=== PATIENT | male | born 1965 | race Two or more races ===

== ENCOUNTER 2025-05-14 13:32 | Inpatient (IN) | payer MEDICAID, OTHER ==
[~2025-05-14] VITALS: Ht 162.6 cm; Wt 63.0 kg
--- NOTE | 2025-05-14 15:41 | ED.PDOC ---
Musculoskeletal HPI Comments 59 y.o male with PMHx of DM and HTN, presents to the ED for a chief complaint of left lower foot pain that has been ongoing for a couple weeks. Patient reports he was in a rehabilitation center in [place] and was recently dropped off around this area 5 days ago, states he has been homeless for 5 years s/p getting evicted from his home and since has not taken any of his medications. Patient described foot pain as a cramping, burning sensation that worsens with temperature and also developed dizziness and increased thirst for the past couple of days. Patient has not been able to check his BG since he has been homeless and is concerned of his health due to lack of resources. Patient has ingrown toenails with long nails noted in which patient states he has not been able to clip due to his chronic lower back pain. Patient believes foot pain is coming from the ingrown nails. He denies nay falls, trauma, numbness sensation. Chief Complaint: Lower Extremity Time Seen by MD: 15:19 Reviewed Notes: Nurses Notes, Medications, Allergies Information Source: Patient Mode of Arrival: Ambulatory Location: Left Extremity Location: Foot Timing: Weeks Severity: Moderate Able to Move Extremity: Yes Bear Weight: Limited Pain: Moderate Mechanism: Spontaneous Circumstances: Spontaneous Onset of Symptoms: Spontaneous Symptoms: Swelling, Pain DVT Risk Factors: NONE Associated signs and symptoms: Swelling Past Medical History PAST MEDICAL HISTORY: DM, HTN Surgical History: Denies all surgeries Family History Family History: Reviewed,noncontributory to illness Social History Smoker: Non-Smoker Alcohol: Denies ETOH Use Drugs: Denies Drug Use Lives In: Homeless Constitutional: denies: chills, diaphoresis, fatigue, fever, malaise, sweats, weakness, others EENTM: denies: blurred vision, double vision, ear bleeding, ear discharge, ear drainage, ear pain, ear ringing, eye pain, eye redness, hearing loss, mouth pain, mouth swelling, nasal discharge, nose bleeding, nose congestion, nose pain, photophobia, tearing, throat pain, throat swelling, voice changes, others Respiratory: denies: cough, hemoptysis, orthopnea, SOB at rest, shortness of breath, SOB with excertion, stridor, wheezing, others Cardiovascular: denies: chest pain, dizzy spells, diaphoresis, Dyspnea on exertion, edema, irregular heart beat, left arm pain, lightheadedness, palpitations, PND, syncope, others Gastrointestinal: denies: abdomen distended, abdominal pain, blood streaked bowels, constipated, diarrhea, dysphagia, difficulty swallowing, hematemesis, melena, nausea, poor appetite, poor fluid intake, rectal bleeding, rectal pain, vomiting, others Genitourinary: denies: burning, dysuria, flank pain, frequency, hematuria, incontinence, penile discharge, penile sore, pain, testicle pain, testicle swelling, urgency, others Neurological: reports: dizziness; denies: fainting, headache, left sided numbness, left sided weakness, numbness, paresthesia, pre-existing deficit, right sided numbness, right sided weakness, seizure, speech problems, tingling, tremors, weakness, others Musculoskeletal: reports: others (left foot pain ); denies: back pain, gout, joint pain, joint swelling, muscle pain, muscle stiffness, neck pain Integumetry: denies: bruises, change in color, change in hair/nails, dryness, laceration, lesions, lumps, rash, wounds, others Allergic/Immunocompromised: denies: Difficulty Healing, Frequent Infections, Hives, Itching, others Hematologic/Lymphatic: denies: anemia, blood clots, easy bleeding, easy bruising, swollen glands, others Endocrine: reports: excessive thirst; denies: excessive hunger, excessive sweating, excessive urination, flushing, intolerance to cold, intolerance to heat, unexplained weight gain, unexplained weight loss, others Psychiatric: denies: anxiety, bipolar disorder, depression, hopeless, panic disorder, schizophrenia, sleepless, suicidal, others Physical Exam General Appearance: No Apparent Distress, Normal HEENT: Normal ENT Inspection, Pharynx Normal, TMs Normal Neck: Full Range of Motion, Non-Tender, Normal, Normal Inspection Respiratory: Chest Non-Tender, Lungs Clear, No Accessory Muscle Use, No Respiratory Distress, Normal Breath Sounds Cardiovascular: No Edema, No JVD, No Murmur, No Gallop, Normal Peripheral Pulses, Regular Rate/Rhythm Breast Exam: Deferred Gastrointestinal: No Organomegaly, Non Tender, No Pulsatile Mass, Normal Bowel Sounds, Soft Genitalia: Deferred Pelvic: Deferred Rectal: Deferred Extremities: No calf tenderness, Normal capillary refill, Normal inspection, Normal range of motion, Non-tender, No pedal edema Musculoskeletal : Location: Left Extremity Location: Foot Apperance: Tenderness: Moderate Neurologic: Alert, tonnage compilation clerk II-XII nml as Tested, No Motor Deficits, Normal Affect, Normal Mood, No Sensory Deficits Cerebellar Function: Normal Reflexes: Normal Skin: Dry, Normal Color, Warm, Other (left foot ingrown nails noted. ) Lymphatic: No Adenopathy Was a procedure done? Was a procedure done?: No Differential Diagnosis EXT Differential Diagnosis: Cellulitis, CHF, Deep Vein Thrombosis, Sprain, Gout, DJD, Strain X-Ray, Labs, Meds, VS Vital Signs Date Time Temp Pulse Resp B/P (MAP) Pulse Ox O2 Delivery O2 Flow Rate FiO2 05/14/25 13:38 97.1 67 18 144/82 97 97.1 Lab Test 05/14/25 15:55 Range/Units White Blood Count 9.0 4.4-10.8 10^3/uL Red Blood Count 4.72 4.5-5.90 10^6/uL Hemoglobin 14.1 13.5-17.5 g/dL Hematocrit 40.7 L 41.0-53.0 % Mean Corpuscular Volume 86.2 80.0-100.0 fL Mean Corpuscular Hemoglobin 29.8 28.0-32.0 pg Mean Corpuscular Hemoglobin Concent 34.5 32.0-36.0 g/dL Red Cell Distribution Width 13.0 11.8-14.3 % Platelet Count 317 140-450 10^3/uL Mean Platelet Volume 7.3 6.9-10.8 fL Neutrophils (%) (Auto) 57.9 37.0-80.0 % Lymphocytes (%) (Auto) 30.2 10.0-50.0 % Monocytes (%) (Auto) 8.2 0.0-12.0 % Eosinophils (%) (Auto) 3.1 0.0-7.0 % Basophils (%) (Auto) 0.6 0.0-2.0 % Neutrophils # (Auto) 5.2 1.6-8.6 10 ^3/uL Lymphocytes # (Auto) 2.7 0.4-5.4 10 ^3/uL Monocytes # (Auto) 0.7 0-1.3 10 ^3/uL Eosinophils # (Auto) 0.3 0-0.8 10 ^3/uL Basophils # (Auto) 0 0-0.2 10 ^3/uL Nucleated Red Blood Cells 0.1 % Sodium Level 135 L 136-145 mmol/L Potassium Level 5.0 3.5-5.1 mmol/L Chloride Level 101 98-107 mmol/L Carbon Dioxide Level 26 20-31 mmol/L Anion Gap 8 5-15 Blood Urea Nitrogen 12 9-23 mg/dL Creatinine 1.03 0.700-1.30 mg/dL Glomerular Filtration Rate Calc 83 >90 mL/min BUN/Creatinine Ratio 11.7 10.0-20.0 Serum Glucose 329 H 74-106 mg/dL Calcium Level 9.2 8.7-10.4 mg/dL Total Bilirubin 0.3 0.2-1.0 mg/dL Aspartate Amino Transferase (AST) 13 13-40 U/L Alanine Aminotransferase (ALT) 18 7-40 U/L Alkaline Phosphatase 115 46-116 U/L Total Protein 7.2 5.7-8.2 g/dL Albumin 4.0 3.2-4.8 g/dL X-Ray, Labs, Meds, VS Comment Patient will be admitted for hyperglycemia I then recommend A1c testing Recommend social service consult as patient is homeless Patient will require diabetic management and teaching. Vital signs reviewed by this provider, Previous charts/history reviewed by this provider Patient clinically stable Time of 1ST Reevaluation: 15:41 Reevaluation 1ST: Unchanged Patient Education/Counseling: Diagnosis, Treatment, Prognosis Family Education/Counseling: No Family Present Departure 1 Departure Time of Disposition: 18:56 Impression: Primary Impression: Hyperglycemia Additional Impression: Right leg pain Disposition: ADMITTED INPATIENT Condition: Stable Critical Care Note Critical Care Time?: No Stability Stability form required: No I personally scribed for NORMA MANRIQUE ([email or web address]) on 05/14/25 at 15:41. Electronically submitted by Rashida Penaloza ([facility]). NORMA MANRIQUE May 14, 2025 15:41
[2025-05-14 16:09] LABS: Hematocrit 40.7 % (41.0-53.0); Hemoglobin 14.1 g/dL (13.5-17.5); Mean Corpuscular Hemoglobin 29.8 pg (28.0-32.0); Mean Corpuscular Volume 86.2 fL (80.0-100.0); Nucleated Red Blood Cells % 0.1 %
[2025-05-14 16:23] LABS: Alanine Aminotransferase 18 U/L (7-40); Albumin 4.0 g/dL (3.2-4.8); Alkaline Phosphatase 115 U/L (46-116)
[2025-05-14 16:24] LABS: Chloride 101 mmol/L (98-107); Potassium 5.0 mmol/L (3.5-5.1); Sodium 135 mmol/L (136-145)
[2025-05-14 16:28] LABS: Anion Gap 8 (5-15); Calcium 9.2 mg/dL (8.7-10.4); Carbon Dioxide 26 mmol/L (20-31)
[2025-05-14 16:33] LABS: BUN/Creatinine Ratio 11.7 (10.0-20.0); Blood Urea Nitrogen 12 mg/dL (9-23); Total Protein 7.2 g/dL (5.7-8.2)
[2025-05-14 16:35] LABS: Bilirubin, Total 0.3 mg/dL (0.2-1.0)
[2025-05-14 16:39] LABS: Glucose 329 mg/dL (74-106)
--- NOTE | 2025-05-14 19:36 | DVHHP2 ---
Admitting Diagnosis: Right leg pain History of Present Illness 59 y.o male with PMHx of DM and HTN, presents to the ED for a chief complaint of left lower foot pain that has been ongoing for a couple weeks. Patient reports he was in a rehabilitation center in [place] and was recently dropped off around this area 5 days ago, states he has been homeless for 5 years s/p getting evicted from his home and since has not taken any of his medications. Patient described foot pain as a cramping, burning sensation that worsens with temperature and also developed dizziness and increased thirst for the past couple of days. Patient has not been able to check his BG since he has been homeless and is concerned of his health due to lack of resources. Patient has ingrown toenails with long nails noted in which patient states he has not been able to clip due to his chronic lower back pain. Patient believes foot pain is coming from the ingrown nails. He denies nay falls, trauma, numbness sensation. PAST MEDICAL HISTORY: DM, HTN Surgical History: Denies all surgeries Family History Family History: Reviewed,noncontributory to illness Social History Smoker: Non-Smoker Alcohol: Denies ETOH Use Drugs: Denies Drug Use Lives In: Homeless Vital Signs Vital Signs Date Time Temp Pulse Resp B/P (MAP) Pulse Ox O2 Delivery O2 Flow Rate FiO2 05/14/25 19:37 97.9 68 12 148/81 (103) 97 97.9 Physical Exam Generally-59 years old male, well nourished well developed. No apparent distr ess HEENT-atraumatic normocephalic Heart-regular rate and rhythm Lungs clear to auscultate bilaterally Abdomen soft nontender nondistended Musculoskeletal-no edema cyanosis Neuro-AO x3, no focal deficits SEPSIS Sepsis Screen Date sepsis recognized/suspect: May 14, 2025 Time Sepsis recognized/suspect: 1338 Recent Procedure: No On Antibiotic Therapy: No Respiratory Rate >20: No Heart Rate >90: No Temp<36 C (96.8 F) or >38.3 C: No SBP <90 or MAP <65 mmHG: No New Acute Mental Status Change: No Is the patient on CPAP, BIPAP,: No Physician Orders Urinalysis (05/14/25 15:49) Albuterol Medneb (Ventolin Medneb) (05/14/25 22:00) Ipratropium Medneb (Atrovent Medneb) (05/14/25 22:00) Methylprednisolone Sod Succ (Solu Medrol (05/14/25 22:00) Admit (05/14/25 20:31) Code Status (05/14/25 20:31) Vital Signs .PER UNIT PROTOCOL (05/14/25 20:31) Review Orders With Adm.Md (05/14/25 20:31) Encourage Activity As Tolerate (05/14/25 20:31) Regular Diet (05/15/25 Breakfast) Sodium Chloride Lock (Saline Lock Ns) (05/14/25 22:00) Docusate Sodium Capsule (Colace Capsule) (05/14/25 20:45) Acetaminophen Tablet (Tylenol Tablet) (05/14/25 20:45) Notify Md Of Changes From Base (05/14/25 20:31) Advance Directive (05/14/25 20:31) Patient Condition (05/14/25 20:31) Allergies (05/14/25 20:31) Hydrocodone-Acet 5/325mg Tab (Bapchule /32 (05/14/25 20:45) Hydromorphone Injection (Dilaudid Inject (05/14/25 20:45) Ondansetron Hcl (Zofran) (05/14/25 20:45) Lovenox 40mg (05/15/25 10:00) Venous Blood Gas (05/14/25 20:31) Vital Signs Date Time Temp Pulse Resp B/P (MAP) Pulse Ox O2 Delivery O2 Flow Rate FiO2 05/14/25 19:37 97.9 68 12 148/81 (103) 97 97.9 05/14/25 13:38 97.1 67 18 144/82 97 97.1 Laboratory Tests Test 05/14/25 15:55 White Blood Count 9.0 10^3/uL (4.4-10.8) Results Labs Test 05/14/25 15:55 Range/Units White Blood Count 9.0 4.4-10.8 10^3/uL Red Blood Count 4.72 4.5-5.90 10^6/uL Hemoglobin 14.1 13.5-17.5 g/dL Hematocrit 40.7 L 41.0-53.0 % Mean Corpuscular Volume 86.2 80.0-100.0 fL Mean Corpuscular Hemoglobin 29.8 28.0-32.0 pg Mean Corpuscular Hemoglobin Concent 34.5 32.0-36.0 g/dL Red Cell Distribution Width 13.0 11.8-14.3 % Platelet Count 317 140-450 10^3/uL Mean Platelet Volume 7.3 6.9-10.8 fL Neutrophils (%) (Auto) 57.9 37.0-80.0 % Lymphocytes (%) (Auto) 30.2 10.0-50.0 % Monocytes (%) (Auto) 8.2 0.0-12.0 % Eosinophils (%) (Auto) 3.1 0.0-7.0 % Basophils (%) (Auto) 0.6 0.0-2.0 % Neutrophils # (Auto) 5.2 1.6-8.6 10 ^3/uL Lymphocytes # (Auto) 2.7 0.4-5.4 10 ^3/uL Monocytes # (Auto) 0.7 0-1.3 10 ^3/uL Eosinophils # (Auto) 0.3 0-0.8 10 ^3/uL Basophils # (Auto) 0 0-0.2 10 ^3/uL Nucleated Red Blood Cells 0.1 % Sodium Level 135 L 136-145 mmol/L Potassium Level 5.0 3.5-5.1 mmol/L Chloride Level 101 98-107 mmol/L Carbon Dioxide Level 26 20-31 mmol/L Anion Gap 8 5-15 Blood Urea Nitrogen 12 9-23 mg/dL Creatinine 1.03 0.700-1.30 mg/dL Glomerular Filtration Rate Calc 83 >90 mL/min BUN/Creatinine Ratio 11.7 10.0-20.0 Serum Glucose 329 H 74-106 mg/dL Calcium Level 9.2 8.7-10.4 mg/dL Total Bilirubin 0.3 0.2-1.0 mg/dL Aspartate Amino Transferase (AST) 13 13-40 U/L Alanine Aminotransferase (ALT) 18 7-40 U/L Alkaline Phosphatase 115 46-116 U/L Total Protein 7.2 5.7-8.2 g/dL Albumin 4.0 3.2-4.8 g/dL Primary Diagnosis Hyperglycemia right leg pain Plan brush worker consult Insulin sliding scale fingerstick goal 140-180 Regular diet Full code Lovenox for DVT prophylaxis No GI prophylaxis needed Plan discussed with: Patient Problems List: (1) Hyperglycemia Status: Acute (2) Right leg pain Status: Acute Date of Service: May 14, 2025 Billing Provider: ISAURA SANDERS MD Common Visit Codes: 85189-HXETHTS INP/OBS CARE (MOD) ISAURA SANDERS MD May 14, 2025 19:36
[2025-05-14] MEDS ORDERED: DOCUSATE SOD 100 MG CAP PO PRN (20:45)
[2025-05-14] MEDS ORDERED: HYDROcodone-ACET 5/325MG TAB PO PRN (20:45)
[2025-05-14] MEDS ORDERED: ACETAMINOPHEN 325 MG TAB PO PRN (20:45)
[2025-05-14] MEDS ORDERED: HYDROmorphone HCL 2 MG/ML VL/or syr IV PRN (20:45)
[2025-05-14] MEDS ORDERED: DEXTROSE (50%) 50ML SYRG IV PRN (20:45)
[2025-05-14] MEDS ORDERED: ONDANSETRON HCL 4 MG/2 ML VIAL IV PRN (20:45)
[2025-05-14 21:00] VITALS: BP 107/74; PULSE 70; RESP 18; TEMP 99.1; O2SAT 100
[2025-05-14 21:48] VITALS: PULSE 69; RESP 18; O2SAT 99
[2025-05-14] MEDS: ALBUTEROL SULF 2.5 MG/0.5ML(0.5%) NEB SOLN ONE (21:53)
[2025-05-14] MEDS: IPRATROPIUM BROM 0.5 MG/2.5ML INH SOL ONE (21:54)
[2025-05-14 21:57] VITALS: PULSE 71; RESP 18; O2SAT 100
[2025-05-14] MEDS ORDERED: IPRATROPIUM BROM 0.5 MG/2.5ML INH SOL NEB SCH (22:00)
[2025-05-14] MEDS ORDERED: ALBUTEROL SULF 2.5 MG/0.5ML(0.5%) NEB SOLN NEB SCH (22:00)
[2025-05-14] MEDS ORDERED: methylPREDNISolone SOD SUCC 125 MG/2 ML VL IV SCH (22:00)
[2025-05-14 22:36] VITALS: O2SAT 99
[2025-05-14 22:37] VITALS: BP 148/81; PULSE 69; RESP 18; TEMP 97.9; O2SAT 99
[2025-05-15] VITALS (8 sets, daily range): BP systolic 129–155; BP diastolic 60–87; PULSE 60–69; RESP 16–18; TEMP 97.5–99; O2SAT 95–98
[2025-05-15] MEDS: LACTATED RINGER'S 1,000 ML IV ONE (03:03)
[2025-05-15 05:52] LABS: Hematocrit 37.4 % (41.0-53.0); Hemoglobin 12.8 g/dL (13.5-17.5); Mean Corpuscular Hemoglobin 29.3 pg (28.0-32.0); Mean Corpuscular Volume 85.5 fL (80.0-100.0); Nucleated Red Blood Cells % 0.0 %
[2025-05-15] MEDS: ACCU-CHEK COMFORT CURVE STRIP VI SCH (06:18)
[2025-05-15] MEDS: InsuLIN REG 1unit/0.01ml Soln (100units/ml) SC SCH (06:20)
[2025-05-15] MEDS: SODIUM CHLOR 0.9% PF (SALINE LOCK) 10ML VIAL/SYR IV SCH (06:21)
[2025-05-15 06:32] LABS: Alanine Aminotransferase 16 U/L (7-40); Alkaline Phosphatase 108 U/L (46-116); Anion Gap 8 (5-15); BUN/Creatinine Ratio 15.2 (10.0-20.0); Blood Urea Nitrogen 12 mg/dL (9-23); Calcium 8.9 mg/dL (8.7-10.4); Carbon Dioxide 25 mmol/L (20-31); Chloride 103 mmol/L (98-107); Potassium 4.1 mmol/L (3.5-5.1); Total Protein 6.4 g/dL (5.7-8.2)
[2025-05-15 06:33] LABS: Albumin 3.5 g/dL (3.2-4.8); Bilirubin, Total 0.4 mg/dL (0.2-1.0)
[2025-05-15 06:39] LABS: Glucose 244 mg/dL (74-106); Sodium 136 mmol/L (136-145)
[2025-05-15] MEDS: ENOXAPARIN SOD 40 MG/0.4 ML SYRINGE SC SCH (12:13)
[2025-05-15] MEDS ORDERED: METF-489 PO (18:14)
[2025-05-15] MEDS ORDERED: GLIP5TAB21 PO (18:14)
[2025-05-15] MEDS ORDERED: GABA-339 PO (18:14)
--- NOTE | 2025-05-15 18:21 | DVHDS2 ---
Discharge Summary Date of Admission May 14, 2025 at 20:31 Date of Discharge: May 15, 2025 Labs/Diagnostic Data: Laboratory Results Test 05/15/25 16:28 05/15/25 05:12 05/14/25 21:15 05/14/25 20:54 POC Glucose 237 mg/dl (70-106) White Blood Count 7.9 10^3/uL (4.4-10.8) Red Blood Count 4.37 10^6/uL (4.5-5.90) Hemoglobin 12.8 g/dL (13.5-17.5) Hematocrit 37.4 % (41.0-53.0) Mean Corpuscular Volume 85.5 fL (80.0-100.0) Mean Corpuscular Hemoglobin 29.3 pg (28.0-32.0) Mean Corpuscular Hemoglobin Concent 34.3 g/dL (32.0-36.0) Red Cell Distribution Width 13.0 % (11.8-14.3) Platelet Count 295 10^3/uL (140-450) Mean Platelet Volume 7.3 fL (6.9-10.8) Neutrophils (%) (Auto) 51.8 % (37.0-80.0) Lymphocytes (%) (Auto) 35.0 % (10.0-50.0) Monocytes (%) (Auto) 8.5 % (0.0-12.0) Eosinophils (%) (Auto) 4.2 % (0.0-7.0) Basophils (%) (Auto) 0.5 % (0.0-2.0) Neutrophils # (Auto) 4.1 10 ^3/uL (1.6-8.6) Lymphocytes # (Auto) 2.7 10 ^3/uL (0.4-5.4) Monocytes # (Auto) 0.7 10 ^3/uL (0-1.3) Eosinophils # (Auto) 0.3 10 ^3/uL (0-0.8) Basophils # (Auto) 0 10 ^3/uL (0-0.2) Nucleated Red Blood Cells 0.0 % Sodium Level 136 mmol/L (136-145) Potassium Level 4.1 mmol/L (3.5-5.1) Chloride Level 103 mmol/L (98-107) Carbon Dioxide Level 25 mmol/L (20-31) Anion Gap 8 (5-15) Blood Urea Nitrogen 12 mg/dL (9-23) Creatinine 0.79 mg/dL (0.700-1.30) Glomerular Filtration Rate Calc 102 mL/min (>90) BUN/Creatinine Ratio 15.2 (10.0-20.0) Serum Glucose 244 mg/dL (74-106) Hemoglobin A1c 10.4 % A1C (<5.7) Calcium Level 8.9 mg/dL (8.7-10.4) Total Bilirubin 0.4 mg/dL (0.2-1.0) Aspartate Amino Transferase (AST) 13 U/L (13-40) Alanine Aminotransferase (ALT) 16 U/L (7-40) Alkaline Phosphatase 108 U/L (46-116) Total Protein 6.4 g/dL (5.7-8.2) Albumin 3.5 g/dL (3.2-4.8) Blood Gas Specimen Type Venous Blood Gas Sample Site Vbg - n/a Blood Gas Patient Temperature 37.0 Arterial Blood Date Drawn [id number] Wally Test N/a Venous Blood pH 7.379 (7.320-7.430) Venous Blood pCO2 at Patient Temp 44.7 mmHg (38.0-54.0) Venous Blood pO2 at Patient Temp < 36.5 mmHg (23.0-48.0) Venous Blood HCO3 25.8 mmol/L (22.0-29.0) Venous Blood Base Excess 0.3 mmol/L (-2.0-3.0) Blood Gas Modality Room air FiO2 % 21.0 Lactic Acid Level 1.2 mmol/L (0.4-2.0) Test 05/14/25 15:55 Erythrocyte Sedimentation Rate 20 mm/hr (0-20) C-Reactive Protein High Sensitivity 0.11 mg/dL (<1.0) Other Laboratory Tests 05/15/25 05:12 Brief Hx & Hospital Course: 59 y.o male with PMHx of DM and HTN, presents to the ED for a chief complaint of left lower foot pain that has been ongoing for a couple weeks. Patient reports he was in a rehabilitation center in [place] and was recently dropped off around this area 5 days ago, states he has been homeless for 5 years s/p getting evicted from his home and since has not taken any of his medications. Patient described foot pain as a cramping, burning sensation that worsens with temperature and also developed dizziness and increased thirst for the past couple of days. Patient has not been able to check his BG since he has been homeless and is concerned of his health due to lack of resources. Patient has ingrown toenails with long nails noted in which patient states he has not been able to clip due to his chronic lower back pain. Patient believes foot pain is coming from the ingrown nails. He denies nay falls, trauma, numbness sensation. A1c around 10, patient is homeless, no PCP, all family and PCP are in [place] and he has trended in [facility]. Patient pain is due to neuropathy, can be controlled with p.o. medications. Diabetes is uncontrolled due to noncompliance we will start medications with need to be followed up with PCP. Stable for discharge as per plan below. Diagnosis: Diabetes with hyperglycemia Peripheral neuropathy due to diabetes Bilateral leg pain due to above Medication noncompliance Hypotension Homelessness Discharge plan -Start metformin ER 500 mg twice daily, glipizide 5 mg once daily, gabapentin 300 mg 3 times daily - refer to homeless resources to find correction -Strict following of diabetic low carbohydrate diet -Follow up PCP Condition at Discharge: Fair Final Diagnosis/Problems List Diabetes with hyperglycemia Peripheral neuropathy due to diabetes Bilateral leg pain due to above Medication noncompliance Hypotension Homelessness Discharge Disposition: Home Discharge Instruct/Medications Diet: Consistent carbohydrate Activity: No Restrictions, As Tolerated Follow Up/Referral: See below Medications: See below Scheduled Gabapentin (Gabapentin), 0.5 TAB PO TID Glipizide (Glipizide), 1 TAB PO DAILY Metformin Hydrochloride (Metformin Hcl Er), 1 TAB PO BID Discharge Statement: "Patient was advised to return to the ER or call 911 if any headaches, dizziness, shortness of breath, chest pain, abdominal pain, bleeding, fevers, or worsening of medical condition. Patient was counseled about treatment plan, medications, possible side effects, patientverbalized understanding. All questions were answered to the best of my ability. This discharge took greater then 30 minutes in planning, reviewing documentation, counseling the patient, and discussing with other team members." Date of Service: May 15, 2025 Billing Provider: NICA GUEVARA MD Common Visit Codes: 19904-NGP/OBS DISCH DAY >30min NICA GUEVARA MD May 15, 2025 18:21
== END 2025-05-15 23:55 | disposition home or self-care (01) | DRG 48 ==
LOC: ER 13:32 → OVERFLOW 20:31
PROVIDERS: ADMIT Student in an Organized Health Care Education/Training Program; ATTEND Student in an Organized Health Care Education/Training Program
DX: E11.42 Type 2 diabetes mellitus with diabetic polyneuropathy (principal); I95.9 Hypotension, unspecified; E11.65 Type 2 diabetes mellitus with hyperglycemia; I10 Essential (primary) hypertension; L60.0 Ingrowing nail; Z59.00 Homelessness unspecified; Z91.148 Patient's other noncompliance with medication regimen for other reason
CPT/HCPCS: 36415; 36600; 80053; 82805; 82962; 83036; 83605; 85025; 85652; 86141; 87081; 94640; 96361; 96374; G0378; J1815